=== PATIENT | male | born 1945 | race African-American/Black ===

== ENCOUNTER 2017-02-22 05:27 | Day surgery (SDC) | payer BC, OTHER ==
[~2017-02-22] VITALS: Ht 182.9 cm; Wt 113.4 kg
--- NOTE | ~2017-02-22 | HC ---
[facility] [place] [address] CONSULTATION Name: SHITAL MAN Room #: [facility].#: [id number] Admission: 02/22/17 Attend Phys: Chucho Alberts MD, Discharge: 02/22/17 Date of : 47 Report #: [id number] THIS REPORT FOR: //name// CC: Boubacar Alberts MD DATE OF SERVICE: 02/22/2017 REASON FOR CONSULTATION: Intraoperative consultation for difficulty with intubation. HISTORY OF PRESENT ILLNESS: The patient is a 71-year-old gentleman who is undergoing an elective ventral hernia repair by Dr. Alberts on 02/22/2017. I was called emergently to the operating room by the attending anesthesiologist as they were having difficulty advancing the endotracheal tube into the appropriate position. Discussion with the anesthesiologist there was no difficulty in masking his airway and upon induction with attempts of a 7.5 endotracheal tube seemed to pass under direct visualization through the true vocal cords, but upon getting into the subglottis, there was resistance met. They did not try the intubation with a through the endotracheal tube and still met some resistance and then switched to 7.0 endotracheal tube and had the same resistance, although they were able to ventilate the patient. I was asked to ascertain if there was a mass effect causing problems. I examined the patient while he was under the effects of general anesthetic. There was a 7.[address]al tube in place. He appeared to have good ventilation at this time and was under control of anesthesia with inhalation through the circuit. I then initially performed a flexible laryngoscopy/bronchoscopy through the existing 7.0 endotracheal tube (see procedure note). I then performed direct laryngoscopy to better visualize the upper airway and replaced the 7.0 with a 6.5 endotracheal tube, which passed quite readily (see procedure note). The case then proceeded uneventfully according to Dr. Alberts. I then returned to the operating room at the completion of the case and prior to extubation. I again did a flexible bronchoscopy through the 6.5 endotracheal tube and extubated the patient under direct airway control leaving the flexible bronchoscopy into the trachea during the entire removal with no structurally abnormalities noted (see procedure note). The patient was extubated and went to recovery room in stable condition. ASSESSMENT: History of tracheal deviation necessitating difficulty with intubation. PLAN: We will obtain a chest x-ray in the recovery room. [address] [address] CONSULTATION Name: SHITAL MAN Room #: DEP [facility] Lolis#: [id number] Admission: 02/22/17 Attend Phys: Chucho Alberts MD, Discharge: 02/22/17 Date of : 47 Report #: [id number] ADDENDUM: The chest x-ray did demonstrate some tracheal deviation, but there is no obvious mediastinal mass present. The patient is doing quite well from an airway standpoint, will be discharged home as he received Decadron intraoperatively and has done well with his airway postoperatively several hours. He will need to have a CT scan of his chest postoperatively as an outpatient and will follow up with Dr. Alberts. This information was communicate directly to Dr. Alberts as well as the attending anesthesiologist. <ELECTRONICALLY SIGNED> By: Arias Stanley MD 02/23/17 0756 1252 06 Arias Stanley MD /nt
--- NOTE | ~2017-02-22 | O ---
[facility] [place] [address] OPERATIVE REPORT Name: SHITAL MAN Room #: DEP [facility]..#: [id number] Admission: 02/22/17 Attend Phys: Chucho Alberts MD, Discharge: 02/22/17 Date of : 47 Report #: [id number] THIS REPORT FOR: //name// CC: Boubacar Alberts DATE OF SERVICE: 02/22/2017 PREOPERATIVE DIAGNOSIS: Difficulty with intubation. POSTOPERATIVE PROCEDURE DIAGNOSIS: Deviated trachea. PROCEDURES PERFORMED: Flexible bronchoscopy, direct laryngoscopy with intubation. TECHNIQUE: I have been asked to see the patient emergently by Anesthesia and the attending surgeon for difficulty with intubation. The patient had an indwelling 7.0 oral endotr[address]al tube in place and had reasonable ventilations, although the endotracheal tube was not advanced deep enough. I initially used a flexible bronchoscope introducing it through the opening of the endotracheal tube advancing us through the endotracheal tube and the tip. The tip of the endotracheal tube was resting against the anterior tracheal wall with the islet and the trachea essentially acting as the ventilation source. I attempted to bypass this several times without success. I then recommended proceeding to direct laryngoscopy where after protecting his upper alveolar ridge with a 4 x 4, I used the Dedo laryngoscope and introduced in the oral cavity and in the oropharynx. I was able to see that the laryngeal and lingual surface of the epiglottis is unremarkable. The postcricoid space appeared normal. Both true vocal cords were in adequate position. He was paralyzed and the cords were in full adduction. Both true vocal cords appeared unremarkable. I could see that the balloon of the endotracheal tube was inflated just inferior to the cords and the subglottis. I then had Anesthesia deflate the balloon and remove the endotracheal tube. Under direct visualization, I was able to see that the anterior tracheal wall was slightly irritated from trauma, directly from the endotracheal tube tip; however, there was no swelling noted. No masses were noted and a quick pass of the flexible bronchoscope into the median subglottis did not show any abnormalities aside from the tracheal deviation. At that point under direct visualization, the 6.5 endotracheal tube was advanced without any difficulty in the subglottis and the balloon was inflated. I then removed the Dedo laryngoscope with the airway secured and ventilation was confirmed by Anesthesia. At the end of the case, I returned and placed the flexible bronchoscope through the 6.5 endotracheal tube, advanced this all the way to just above the melissa. The Anesthesia with the balloon down and I removed the endotracheal tube leaving the flexible bronchoscope in the trachea. I then slowly withdrew this [facility] [address] [place] [address] OPERATIVE REPORT Name: DONOVANSHITAL CAT Room #: DEP [facility] M.R.#: [id number] Admission: 02/22/17 Attend Phys: Chucho Alberts MD, Discharge: 02/22/17 Date of : 47 Report #: [id number] and did not notice any substantial change in the mucosa of the trachea aside from a small irritation against the anterior wall from the tracheostomy tube. There is no evidence of any intraluminal masses, although the trachea itself does have deviation. The posterior wall of the trachea did not appear to be greatly by any esophageal mass. I withdrew the scope through the cords and returned the patient over to Anesthesia where he was easily ventilated by mask. I remained in the room until Anesthesia was assured that the airway was secured. He will be followed by Anesthesia postoperatively and we will obtain the chest x-ray as noted in the consultation note. <ELECTRONICALLY SIGNED> By: Arias Stanley MD 02/23/17 0756 1255 1345 Arias Stanley MD /nt
--- NOTE | ~2017-02-22 | S ---
[facility] [place] [address] SURGICAL PATH RPT PROCEDURE Name: SHITAL MAN Room #: DEP [facility]..#: [id number] Admission: 02/22/17 Date of : 47 Discharge: 02/22/17 Report #: [id number] Path Case #: [id number] PATHOLOGY REPORT COLLECTION DATE: 02/22/2017 RECEIVED DATE: 02/22/2017 SUBMITTING PHYS: Dr. Chucho Alberts OTHER PHYS: Dr. Boubacar Stanley SPECIMEN(S) RECEIVED: A.Recurrent ventral incisional hernia contents with mesh * * * * * * * * * * * * FINAL DIAGNOSIS: Recurrent ventral incisional hernia contents with mesh: - 10.5 cm fibromembranous mesh. (GROSS EXAM ONLY) - Fragments of fibroadipose and dense fibrous tissue compatible with hernia sac. (IUV:csd; d/t: 02/26/2017) PATHOLOGIST: Alondra Hannah M.D. REPORT ELECTRONICALLY SIGNED BY: Alondra Hannah M.D. DATE/TIME: 02/26/2017 15:15 * * * * * * * * * * * * GROSS PATHOLOGY: The specimen is received in formalin labeled "Shital Man, recurrent ventral incisional hernia contents with mesh". Received is a segment of mesh with adherent pink-cunningham fibromembranous to yellow-kathleen fibroadipose tissue measuring 10.5 x 10.4 x 2.5 cm in greatest dimensions. Nurse Epidemiologist sections of soft tissue are submitted in cassette A1. A gross photograph is taken. (CAA; 02/23/2017) CLINICAL HISTORY: Recurrent ventral hernia INITIAL CPT CODE(S): 62310 Professional services performed by [facility] at [facility] [address] [place] [address] [facility] [address] [place] [address] SURGICAL PATH RPT PROCEDURE Name: SHITAL MAN Room #: DEP [facility].#: [id number] Admission: 02/22/17 Date of : 47 Discharge: 02/22/17 Report #: [id number] Path Case #: [id number] Technical services performed by [facility] at [address] [place] [address], [facility] [address] [address]. [facility] [address] [place] [address] PHONE: [phone] DIRECTOR: Jameel Moore M.D. * * * END OF REPORT * * *
--- NOTE | ~2017-02-22 | EKG ---
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 : 1945 Requested By: Chucho Alberts Order Number: [id number] MD: Kristofer Madera Measurements Intervals Colt Rate: 59 P: 22 OR: 166 QRS: 34 QRSD: 115 T: 13 QT: 427 QTc: 423 Interpretive Statements Sinus bradycardia Probable left atrial enlargement Early R wave progression Baseline wander in lead(s) V5,V6 No previous ECG available for comparison Electronically Signed On 02-22-2017 8:03:26 CDT by Kristofer Madera [email or web address] <ELECTRONICALLY SIGNED> By: Kristofer Madera MD, [facility] 02/22/17 0803 0637 Kristofer Madera MD, [facility] /EPI
--- NOTE | ~2017-02-22 | O ---
[address] [address] OPERATIVE REPORT Name: SHITAL MAN Room #: [facility].#: [id number] Admission: 02/22/17 Attend Phys: Chucho Alberts MD, Discharge: 02/22/17 Date of : 47 Report #: [id number] THIS REPORT FOR: //name// CC: Boubacar Alberts DATE OF SERVICE: 02/22/2017 PREOPERATIVE DIAGNOSES: 1. Recurrent incisional ventral hernia. 2. Hypertension. 3. Gastroesophageal reflux disease. 4. Lumbago. 5. Chronic kidney disease stage 3. 6. Obesity with a body mass index of 34.82. POSTOPERATIVE DIAGNOSES: 1. Incarcerated recurrent incisional ventral hernia. 2. Hypertension. 3. Gastroesophageal reflux disease. 4. Lumbago. 5. Chronic kidney disease stage 3. 6. Obesity with a body mass index of 34.82. 7. Incarcerated recurrent left inguinal hernia. 8. Intra-abdominal adhesions. PROCEDURES PERFORMED: 1. Laparoscopic repair of an incarcerated recurrent incisional ventral hernia with mesh. 2. Laparoscopic primary suture repair of an incarcerated recurrent left direct inguinal hernia. 3. Laparoscopic lysis of adhesions. SURGEON: Chucho Alberts MD COMPLIANCE FIELD TECHNICIAN: Idris Heck MD ANESTHESIA: General endotracheal anesthesia. ESTIMATED BLOOD LOSS: Minimal (less than 10 mL). COMPLICATIONS: None appreciated. SPECIMENS: Incarcerated ventral hernia contents including prior synthetic mesh to pathology. [address] [place] [address] OPERATIVE REPORT Name: SHITAL MAN Room #: DEP [facility].#: [id number] Admission: 02/22/17 Attend Phys: Chucho Alberts MD, Discharge: 02/22/17 Date of : 47 Report #: [id number] INDICATIONS: The patient is a 71-year-old -[place] male with recurrent bulging at the site of a prior periumbilical hernia repair with mesh that was done several years ago. The patient has had recurrent bulging at that site without discomfort and upon exam had obvious palpable evidence of a recurrent incisional ventral hernia that necessitated laparoscopic repair today. Intraoperative findings of incarcerated omentum contained within recurrent incisional ventral hernia around his umbilicus were identified as well as intra-abdominal adhesions and band of omentum incarcerated within a recurrent left inguinal hernia. Indication therefore was for the above-mentioned procedures today. PROCEDURE: After explaining the risks, benefits and alternatives of the procedure with the patient in detail in the preoperative holding area and obtaining written consent, the patient was brought to the operating room and placed supine on the operating room table. After conducting a thorough timeout procedure, verifying correct patient and procedure, the patient was given general endotracheal anesthesia. The patient did have a difficult airway and for details of that, please see intraoperative consultation performed by Dr. Arias Stanley of the otolaryngology service. Once the patient was intubated and adequate general endotracheal anesthesia was provided, the patient's abdomen was prepped and draped in standard surgical sterile fashion. 5 mL of 0.5% Marcaine with epinephrine were used to anesthetize the skin in the left upper quadrant and midclavicular line in an immediate subcostal location. A #15 bladed scalpel was used to create a small skin seema at this location. A 5-mm Visiport was placed over 0 degree 5-mm laparoscope and was introduced through this incision site. Once intraabdominal placement was verified visually, the obturator for the trocar and laparoscope were both removed and the abdomen was insufflated to 15 mmHg using carbon dioxide gas. The laparoscope was changed to a 5-mm 30-degree laparoscope, which was reintroduced through this trocar. The entire abdomen was evaluated to ensure no injury upon entry. We immediately identified adhesions throughout the abdominal domain; however, the left lateral abdomen was devoid of adhesions. In the left lower quadrant, we did see evidence of prior placed synthetic mesh in a preperitoneal space with a recurrent defect and an incarcerated band of omentum contained within a recurrent left inguinal hernia that appeared to be direct in nature. At this juncture, I placed a 12-mm Visiport in the left lateral abdomen at the anterior axillary line immediately lateral to the umbilicus. A #15 bladed scalpel was used to create a 1-cm transverse incision at this location after anesthetizing the skin with 10 mL of 0.5% Marcaine with epinephrine. The 12-mm Visiport was placed through this defect under direct vision. A Harmonic scalpel was now used to transect the incarcerated omentum contained within the recurrent left groin hernia. This was done for hemostasis. I then anesthetized the skin overlying the defect in question in the left lower quadrant with 5 mL of 0.5% Marcaine with epinephrine and I created a small skin seema using #15 bladed scalpel. I placed a 5-mm Visiport directly through the skin incisions and through the center most portion of the recurrent left inguinal hernia defect again that was a direct defect in [address] [address] OPERATIVE REPORT Name: SHITAL MAN Room #: DEP [facility] Yenifer.#: [id number] Admission: 02/22/17 Attend Phys: Chucho Alberts MD, Discharge: 02/22/17 Date of : 47 Report #: [id number] nature. The laparoscope was now placed through the 12-mm port and I proceeded to carry out laparoscopic lysis of adhesions to skeletonize the posterior aspect of the anterior abdominal wall. All the incarcerated omentum was transected at the level of the abdominal wall with the Harmonic scalpel for hemostasis. I now proceeded to take down all intra-abdominal fat that was tethered to the peritoneum as well as explant the prior placed synthetic mesh. The prior synthetic mesh was intimately plastered to the posterior aspect of the umbilicus with no discernible tissue plain to dissect this free. Once I had fully removed the mesh from the posterior aspect of the anterior abdominal wall at all other locations and taken all the fat that was tethered to the abdominal wall off, I elected to resect the skin that was nonviable overlying the mesh in question. Electrocautery was used externally to create a circular incision around the umbilicus with hemostasis. This freed the entirety of the resected intra-abdominal contents that was complexed with the skin and I was able to pull this directly through the abdominal wall of the umbilicus. This was passed off the field as specimen. I now proceeded to perform a primary suture repair of the fascial defect that measured approximately 3 x 3 cm in dimension. An 0 PDS suture was now used to run this defect close down the midline starting at the inferior most aspect and running it midway up and then starting another suture in the superior most portion and running that inferiorly to where the 2 sutures met and were tied together. This completely repaired the fascial defect. I then placed the Kevin-Esperanza suture passer device through the center most portion of the suture repair and had already selected a piece of Ventralight ST mesh that was 11.4 cm round with the echo positioning system. This was placed into the abdomen through the 12-mm trocar and the abdomen was gently reinsufflated to 8 mmHg. The Kevin-Esperanza suture passer device was then used to grasp the end eyelet of the balloon insufflation tubing for the echo positioning system and it was pulled up and then cut off and passed off the field. I then attached the syringe insufflator to the balloon insufflation tubing and fully inflated the echo scaffolding and used a hemostat externally to clamp this at the skin level. This held the entire mesh in close approximation with the posterior aspect of the anterior abdominal wall and gave me minimum of 4 cm overlap in the superior and inferior directions as well as 5.5 cm overlap laterally since I had closed the defect down the midline. I then used the secure strap absorbable fixation device to place tacks at 1 cm intervals around the periphery of the mesh as well as placing numerous tacks throughout the innermost portion of the mesh to hold the entire mesh in close approximation with the posterior aspect of the anterior abdominal wall. The hemostat was then elevated externally and suture scissors were used to cut the balloon insufflation tubing. The balloon scaffolding was now grasped and removed through the 12-mm trocar under direct vision and was removed in full. Photodocumentation of the hernia and the mesh repair were taken and provided to the patient and the permanent medical record. I now proceeded to place the laparoscope in the left upper quadrant trocar and I utilized 0 PDS suture on a Kevin-Esperanza suture passer device to place a iwoary-zq-wuaui fascial suture around the recurrent left inguinal defect. This was tied down under direct [facility] [address] [place] [address] OPERATIVE REPORT Name: SHITAL MAN Room #: [facility] Lolis#: [id number] Admission: 02/22/17 Attend Phys: Chucho Alberts MD, Discharge: 02/22/17 Date of : 47 Report #: [id number] vision completely repairing the defect. I then used an additional 0 PDS suture to close the 12 mm fascial incision. This was done under direct vision and was tied down under direct vision to ensure I did not catch a loop of bowel or omentum in my suture repair. One final evaluation of the intra-abdominal domain showed complete hemostasis and all hernias were repaired satisfactorily. The laparoscope was removed. The abdomen was fully desufflated and the final remaining port was removed under direct vision. A 4-0 Monocryl was used in a standard subcuticular fashion for all the left lateral skin incisions and I proceeded to use an additional 4-0 PDS in a pursestring fashion at the umbilicus tacking it to the fascia to recreate the umbilicus. Dermabond glue was then applied to all skin wounds. At the end of the procedure, all instrument, needle, and sponge counts were correct. The patient tolerated the procedure without incident, was awakened in the operating room and transitioned to the recovery room in stable condition with no apparent complications. <ELECTRONICALLY SIGNED> By: Chucho Alberts MD, FACS 02/22/179 36 23 Chucho Alberts MD, FACS /nt
[~2017-02-22 05:27] MED LIST: BYSTOLIC10 MG PO; ENDOCET 7.5-321 EACH PO; LISINOPRIL40 MG PO; NORVASC2.5 MG PO
[2017-02-22 07:20] VITALS: BP 125/79
[2017-02-22 10:11] VITALS: BP 125/79
== END 2017-02-22 13:20 | disposition home or self-care (01) ==
LOC: EDBD → TBA 05:27 → OR 05:27 → TBA 05:29 → OR 12:43
DX: K43.0 Incisional hernia with obstruction, without gangrene (principal); K40.31 Unilateral inguinal hernia, with obstruction, without gangrene, recurrent; K21.9 Gastro-esophageal reflux disease without esophagitis; I12.9 Hypertensive chronic kidney disease with stage 1 through stage 4 chronic kidney disease, or unspecified chronic kidney disease; N18.3 Chronic kidney disease, stage 3 (moderate); J39.8 Other specified diseases of upper respiratory tract; G47.33 Obstructive sleep apnea (adult) (pediatric)
CPT/HCPCS: 50010; 50101; 50249; 50386; 50555; 50558; 50607; 50962; 50980; 50984; 52265; 53307; 54022; 54118; 56462; 56525; 56526; 57092; 62110; 62900; 64018; 64031; 70005

== ENCOUNTER → 2017-03-16 | Outpatient (CLI) | payer BC, OTHER ==
[2017-03-16 12:24] LABS: CREATININE 1.2 mg/dL (0.7-1.3)
== END ==
LOC: CAT 03-02 09:37
PROVIDERS: Surgery
DX: Q32.1 Other congenital malformations of trachea (principal); R06.02 Shortness of breath